=== PATIENT | male | born 1980 ===

== ENCOUNTER 2018-08-18 14:49 | Emergency (ER) | payer SELFPAY ==
[2018-08-18 14:59] VITALS: BP 126/79
[2018-08-18] MEDS ORDERED: Ondansetron INJ* 2 MG/ML VIAL IV ONE (15:14)
[2018-08-18] MEDS ORDERED: Ketorolac INJ* 30 MG/ML 1 ML VIAL IV PUSH ONE (15:14)
[2018-08-18] MEDS ORDERED: Famotidine IV* 10 MG/ML 2 ML (20 mg) IV SLOW PU ONE (15:14)
[2018-08-18] MEDS ORDERED: NS 0.9% 1000 ML** 1,000 ML IV ONE (15:14)
--- NOTE | 2018-08-18 15:31 | UC ---
Abdominal Pain Female HPI - HPI Summary HPI Summary: Patient presents to urgent care reporting 2 days of intermittent nausea/one episode of vomiting, and diarrhea. Patient states on Tuesday he had a headache, nausea, and abdominal pain. Patient states he vomited that day. Patient states he felt better. Patient states he had some oatmeal then proceeded to have 2 episodes of emesis. Patient states he had a fever Tuesday but none since. Patient denies current headache. No documented fevers. no ear pain, congestion, myalgias. No blood or black in his vomit. No blood or black in his stool. Pt had a formed bM this morning. Pt then had oatmeal, increased cramping and diarrhea after. Patient's 1-year-old child had similar symptoms last week that self resolved. Patient is not on any medics medicine. Patient without any abdominal pain except for when he has the cramping. Patient without any dysuria. No pain in his penis or testicles. Patient has made urine today. Patient has not traveled. Patient has not been on a box. 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 Patient's medications reviewed this visit - History of Current Complaint Chief Complaint: UCAbdominalPain Stated Complaint: VOMITING Time Seen by Provider: 08/18/18 15:05 Hx Obtained From: Patient ?: No Onset/Duration: Gradual Onset Severity Currently: Moderate - intermittent cramp. "0" between cramps Pain Intensity: 8 Allergies/Adverse Reactions: Allergies Allergy/AdvReac Type Severity Reaction Status Date / Time No Known Allergies Allergy Verified 08/18/18 14:59 PMH/Surg Hx/FS Hx/Imm Hx Previously Healthy: Yes - Surgical History Surgical History: None - Family History Known Family History: Positive: Other - 1 yo with GI bug last week, Non- Contributory - Social History Occupation: Employed Full-time Lives: With Family Alcohol Use: None Substance Use Type: None Smoking Status (MU): Never Smoked Tobacco Review of Systems All Other Systems Reviewed And Are Negative: Yes Constitutional: Positive: Fatigue Skin: Positive: Negative Eyes: Positive: Negative Gastrointestinal: Positive: Abdominal Pain, Vomiting, Diarrhea, Nausea Genitourinary: Positive: Negative Is Patient Immunocompromised?: No Physical Exam - Summary Physical Exam Summary: Vital Signs Reviewed: Yes A+Ox3, Pt with cramping pain walking to room - at time of eval - had passed and no pain, tired appearing Eyes: Conjunctiva Clear, ERIK. EOM intact and full ENT: Hearing grossly normal TM x 2 clear, lips dry, uvula midline, no exudate, no erythema Neck: Positive: Supple Respiratory: Positive: No respiratory distress, No accessory muscle use + CTA throughout no w/r Cardiovascular: RRR nl s1, s2 no m/r CBT <2 sec abd soft + BS nt/nd no guarding, no distension Musculoskeletal Exam: SANTILLAN x 4 without difficulty Strength Intact, ROM Intact Neurological: Positive: Alert, + sensation throughout Psychological: Positive: Normal Response To Family Skin: Positive: no rash, no ecchymosis Triage Information Reviewed: Yes Vital Signs: Initial Vital Signs Temp 99.6 F 08/18/18 14:54 Pulse 82 08/18/18 14:54 Resp 18 08/18/18 14:54 BP 126/79 08/18/18 14:54 Pulse Ox 96 08/18/18 14:54 Re-Evaluation - Re-Evaluation First Eval Re-Evaluation Time: 16:27 Change: Improved Comment: Pt appears markedly improved. no nausea, no discomfort. gave crackers water. anticipate discharge with zofran. clears to bland. return precautions Second Eval Change: Improved - Pt tolerated crackers water no abdominal pain feels better will d/c Abd Pain Female Course/Dx - Course Course Of Treatment: Patient presents to urgent care with 2 days intermittent abdominal pain nausea couple episodes of vomiting and diarrhea. Patient states his 1-year-old had similar symptoms last week. Patient without any document fevers although he felt warm. Patient without dysuria. Patient with decreased by mouth second the pain. No analgesia taken. No recent travel and no antibiotics. Patient with no pain between episodes of cramping. On exam vital signs are stable. Patient appears tired and mildly dehydrated. Patient without any abdominal pain at the time of my exam. We'll place an IV, give IV Pepcid saline Zofran and Toradol. We'll reassess. Patient comfortable and agreement with plan. - Differential Dx/Diagnosis Provider Diagnosis: Nausea and vomiting Discharge - Sign-Out/Discharge Documenting (check all that apply): Patient Departure All imaging exams completed and their final reports reviewed: No Studies - Discharge Plan Condition: Stable Disposition: HOME Prescriptions: Ondansetron ODT TAB* [Zofran 4 MG Odt TAB*] 4 mg PO Q4H PRN #10 tab.odt PRN Reason: Nausea Patient Education Materials: Acute Nausea and Vomiting (ED) Referrals: No Primary Care Phys,NOPCP [Primary Care Provider] - Additional Instructions: - For the first 6 hours, eat and drink clears (water, pretty cee, soup broth, jello, popsicles, Gatorade). If you tolerate this okay, add bland foods such as dry toast, scrambled eggs, crackers. Wait until you are feeling better for 24 hours before eating spicy food, acidic food, tomato based food, fried food. - okay to take medication as prescribed for nausea - Okay to take Tylenol every 6 hours for pain or fever - Contact your doctor, [facility], or go to the emergency department for recurrent or ongoing pain, fevers, uncontrolled vomiting or any other concerns - Billing Disposition and Condition Condition: STABLE Disposition: Home
== END 2018-08-18 16:45 | disposition home or self-care (01) ==
LOC: UCEAST 14:49
DX: R11.2 Nausea with vomiting, unspecified (principal); R51 Headache; R10.9 Unspecified abdominal pain
CPT/HCPCS: 96374; 96376; 99202; G0463; J1885; J2405